=== PATIENT | female | born 1990 ===

== ENCOUNTER 2019-03-14 17:00 | Inpatient (IN) | payer BC ==
[2019-03-14] MEDS ORDERED: Nalbuphine 10 MG/1 ML Vial IVPUSH PRN (17:23)
[2019-03-14] MEDS ORDERED: Sodium Chloride 0.9% 10 ML Syringe FLUSH PRN (17:23)
[2019-03-14] MEDS ORDERED: Lidocaine 1% 50 ML MDV INJECT PRN (17:23)
[2019-03-14] MEDS ORDERED: Methylergonovine 0.2 MG/1 ML Amp IM PRN (17:23)
[2019-03-14] MEDS ORDERED: Ondansetron 4 MG/2 ML SDV IV PRN (17:23)
[2019-03-14] MEDS ORDERED: Misoprostol 200 MCG Tab PO PRN (17:23)
[2019-03-14] MEDS ORDERED: Sodium Chloride 0.9% 10 ML SDV IV PRN (17:23)
[2019-03-14] MEDS ORDERED: Water For Irrigation,Sterile 1,000 ML Container IRR PRN (17:23)
[2019-03-14] MEDS ORDERED: Carboprost Tromethamine 250 MCG/1 ML Amp IM PRN (17:23)
[2019-03-14] MEDS ORDERED: Butorphanol 1 MG/ML SDV IVPUSH PRN (17:23)
[2019-03-14] MEDS ORDERED: Tranexamic Acid 1,000 MG in Sodium Chloride 0.9% 100 ML IV PRN (17:23)
[2019-03-14] MEDS ORDERED: Terbutaline 1 MG/ML SDV SUBCUT PRN (17:23)
[2019-03-14] MEDS ORDERED: Sodium Chloride 0.9% 2.5 ML Syringe FLUSH PRN (17:23)
[2019-03-14] MEDS ORDERED: Oxytocin/0.9 % Sodium Chloride 30 UNIT/500 ML BAG IV SCH ×2 (17:30)
[2019-03-14] MEDS ORDERED: Lactated Ringers 1,000 ML IV SCH (17:30)
[2019-03-14] MEDS ORDERED: Ampicillin 2 GM in Sodium Chloride 0.9% 100 ML IV ONE (18:00)
[2019-03-14] MEDS: Lactated Ringers 1,000 ML IV SCH (18:38)
[2019-03-14] MEDS: Ampicillin 1 GM in Sodium Chloride 0.9% 50 ML IV SCH (23:10)
[2019-03-15] MEDS: Lactated Ringers 1,000 ML IV SCH ×2 (01:05→02:10)
[2019-03-15] MEDS ORDERED: Lidocaine HCl/EPINEPHrine 5 ML IJ ONE (01:12)
[2019-03-15] MEDS ORDERED: fentaNYL 100 MCG/2 ML SDV ONE (01:13)
[2019-03-15] MEDS ORDERED: Ropivacaine 0.2% 2 MG/ML 20 ML SDV ONE (01:13)
[2019-03-15] MEDS ORDERED: Ropivacaine HCl/PF 100 ML ONE (01:13)
--- NOTE | 2019-03-15 02:30 | PCM.PREANE ---
Preanesthetic Assessment - Anesthesia/Transfusion/Family Hx Anesthesia History: Prior Anesthesia Without Reaction Family History of Anesthesia Reaction: No Transfusion History: No Prior Transfusion(s) - Review of Systems General: No Symptoms Pulmonary: No Symptoms Cardiovascular: No Symptoms Gastrointestinal: No Symptoms Neurological: No Symptoms Other: Reports: None (Denies any personal or family hx of bleeding or clotting problems) - Physical Assessment Height: 1.6 m Weight: 96.615 kg ASA Class: 2 Mental Status: Alert & Oriented x3 Dentition: Reports: Normal Dentition - Lab Values: Laboratory Last Values WBC 10.24 K/uL (4.0-11.0) 03/14/19 17:47 RBC 5.57 M/uL (4.30-5.90) 03/14/19 17:47 Hgb 10.0 g/dL (12.0-16.0) L 03/14/19 17:47 Hct 33.2 % (36.0-46.0) L 03/14/19 17:47 MCV 59.6 fL (80.0-98.0) L 03/14/19 17:47 MCH 18.0 pg (27.0-32.0) L 03/14/19 17:47 MCHC 30.1 g/dL (31.0-37.0) L 03/14/19 17:47 RDW Std Deviation 43.5 fl (28.0-62.0) 03/14/19 17:47 RDW Coeff of Anjelica 21 % (11.0-15.0) H 03/14/19 17:47 Plt Count 232 K/uL (150-400) 03/14/19 17:47 Nucleated RBC % 0.3 /100WBC 03/14/19 17:47 Nucleated RBCs # 0 K/uL 03/14/19 17:47 POC Glucose 92 mg/dL (60-110) 03/15/19 02:02 Blood Type O POSITIVE 03/14/19 17:47 Antibody Screen NEGATIVE 03/14/19 17:47 - Allergies Allergies/Adverse Reactions: Allergies Allergy/AdvReac Type Severity Reaction Status Date / Time shellfish derived Allergy Anaphylactic Verified 03/14/19 17:17 Shock - Acknowledgements Anesthesia Type Planned: Epidural Pt an Appropriate Candidate for the Planned Anesthesia: Yes Alternatives and Risks of Anesthesia Discussed w Pt/Guardian: Yes Pt/Guardian Understands and Agrees with Anesthesia Plan: Yes PreAnesthesia Questionnaire [employer] History: Reports: Neurological History: Reports: Migraines Endocrine/Metabolic History: Reports: Diabetes, Gestational, IDDM Hematologic History: Reports: Anemia, Other (See Below) Other Hematologic History: microcytic anemia - Infectious Disease History Infectious Disease History: Reports: Chicken Pox - Past Surgical History Endocrine Surgical History: Reports: None - SUBSTANCE USE Smoking Status *Q: Never Smoker Tobacco Use Within Last Twelve Months: No Second Hand Smoke Exposure: No Recreational Drug Use History: No - HOME MEDS Home Medications: Home Meds Insulin NPH Human Isophane [Novolin N] 14 unit SQ DAILY 03/14/19 [History] Insulin NPH Human Isophane [Novolin N] 20 unit SQ BEDTIME 03/14/19 [History] Insulin Regular, Human [NovoLIN R] 11 unit SUBCUT BEDTIME 03/14/19 [History] Insulin Regular, Human [NovoLIN R] 18 unit SUBCUT DAILY 03/14/19 [History] - CURRENT (IN HOUSE) MEDS Current Meds: Current Medications Butorphanol Tartrate (Stadol) 1 mg IVPUSH Q1H PRN PRN Reason: Pain Carboprost Tromethamine (Hemabate Ds) 250 mcg IM ASDIRECTED PRN PRN Reason: Post Hemorrhage Ampicillin Sodium 1 gm/ Sodium (Chloride) 50 mls @ 100 mls/hr IV Q4H [facility] Last Admin: 03/14/19 23:10 Dose: 100 mls/hr Lactated Ringer's (Ringers, Lactated) 1,000 mls @ 150 mls/hr IV ASDIRECTED [facility] Last Admin: 03/14/19 18:23 Dose: 100 mls/hr Oxytocin/Sodium Chloride (Oxytocin 30 Unit/500 Ml-Ns) 30 unit in 500 mls @ 999 mls/hr IV TITRATE [facility] Oxytocin/Sodium Chloride (Oxytocin 30 Unit/500 Ml-Ns) 30 unit in 500 mls @ 2 mls/hr IV TITRATE [facility]; Protocol Last Titration: 03/14/19 23:08 Dose: 10 munits/min, 10 mls/hr Tranexamic Acid 1,000 mg/ (Sodium Chloride) 110 mls @ 660 mls/hr IV ONETIME PRN PRN Reason: Bleeding Insulin Human Regular 100 unit (/ Sodium Chloride) 100 mls @ 2 mls/hr IV TITRATE [facility]; Protocol Last Titration: 03/14/19 23:44 Dose: 0.5 unit/hr, 0.5 mls/hr Lactated Ringer's (Ringers, Lactated) 1,000 mls @ 150 mls/hr IV ASDIRECTED [facility] Last Admin: 03/15/19 02:10 Dose: 500 mls/hr Lidocaine HCl (Xylocaine 1%) 50 ml INJECT ONETIME PRN PRN Reason: Laceration repair Methylergonovine Maleate (Methergine) 0.2 mg IM ASDIRECTED PRN PRN Reason: Post Hemorrhage Misoprostol (Cytotec) 200 mcg PO ONETIME PRN PRN Reason: Post Hemorrhage Nalbuphine HCl (Nubain) 10 mg IVPUSH Q1H PRN PRN Reason: Pain (severe 7-10) Ondansetron HCl (Zofran) 4 mg IV Q6H PRN PRN Reason: Nausea/Vomiting Sodium Chloride (Saline Flush) 10 ml FLUSH ASDIRECTED PRN PRN Reason: Keep Vein Open Sodium Chloride (Saline Flush) 2.5 ml FLUSH ASDIRECTED PRN PRN Reason: Keep Vein Open Sodium Chloride (Normal Saline) 10 ml IV ASDIRECTED PRN PRN Reason: IV Use Sterile Water (Sterile Water For Irrigation) 1,000 ml IRR ASDIRECTED PRN PRN Reason: delivery Terbutaline Sulfate (Brethine) 0.25 mg SUBCUT ASDIRECTED PRN PRN Reason: Tacysystole Discontinued Medications Fentanyl (Sublimaze) Confirm Administered Dose 300 mcg .ROUTE .STK-MED ONE Stop: 03/15/19 01:14 Ampicillin Sodium 2 gm/ Sodium (Chloride) 100 mls @ 200 mls/hr IV ONETIME ONE Stop: 03/14/19 18:29 Last Admin: 03/14/19 18:38 Dose: 200 mls/hr Ropivacaine (Naropin 0.2%) Confirm Administered Dose 100 mls @ as directed .ROUTE .STK-MED ONE Stop: 03/15/19 01:14 Lidocaine/Epinephrine (Lidocaine 1.5%-Epi 1:200,000) Confirm Administered Dose 5 ml IJ .STK-MED ONE Stop: 03/15/19 01:13 Ropivacaine (Naropin 0.2%) Confirm Administered Dose 20 ml .ROUTE .K-MED ONE Stop: 03/15/19 01:14
[2019-03-15] MEDS: Ampicillin 1 GM in Sodium Chloride 0.9% 50 ML IV SCH ×4 (03:00→17:26)
[2019-03-15] MEDS ORDERED: Lanolin 100% Cream 7 GM Tube TOP PRN (04:49)
[2019-03-15] MEDS ORDERED: Witch Hazel Medicated Pads 40/Jar TOP PRN (04:49)
[2019-03-15] MEDS ORDERED: Docusate Sodium 100 MG Cap PO PRN (04:49)
[2019-03-15] MEDS ORDERED: Acetaminophen 500 MG Tab PO PRN ×2 (04:49)
[2019-03-15] MEDS ORDERED: Ibuprofen 400 MG Tab PO PRN (04:49)
[2019-03-15] MEDS ORDERED: oxyCODONE 5 MG Tab PO PRN (04:49)
[2019-03-15] MEDS ORDERED: Benzocaine/Menthol 20%-0.5% Spray 78 GM Cannister TOP PRN (04:49)
[2019-03-15] MEDS ORDERED: Bisacodyl 10 MG Supp RECTAL PRN (04:49)
--- NOTE | 2019-03-15 04:56 | PCM.DEL ---
L & D Note - General Info Date of Service: 03/15/19 Mother's Due Date: 03/23/19 - Delivery Note Labor: Augmented by Oxytocin Cervical Ripening Method: Oxytocin Delivery Outcome: Livebirth Delivery Method: Spontaneous Vaginal Delivery-Single Presentation: Left Occiput Anterior (YAHIR) Nuchal Cord: None Anesthesia Type: Epidural Amniotic Fluid Description: Clear Episiotomy Type: None Laceration: Other (small abrasion on skin oozing ,1 stitch 3.0 vicryl for hemostasis ) Placenta: Intact Cord: 3 Vessels Score 1 min: 8 Score 5 min: 9 Delivery Comments (Free Text/Narrative):: Live male delivered at 345am , 8/9 , weight 4000g - General Info Date of Service: 03/15/19 - Patient Data Weight - Most Recent: 96.615 kg Lab Results Last 24 Hours: Laboratory Results - last 24 hr 03/14/19 03/14/19 03/14/19 Range/Units 17:47 17:47 18:15 WBC 10.24 (4.0-11.0) K/uL RBC 5.57 (4.30-5.90) M/uL Hgb 10.0 L (12.0-16.0) g/dL Hct 33.2 L (36.0-46.0) % MCV 59.6 L (80.0-98.0) fL MCH 18.0 L (27.0-32.0) pg MCHC 30.1 L (31.0-37.0) g/dL RDW Std Deviation 43.5 (28.0-62.0) fl RDW Coeff of Anjelica 21 H (11.0-15.0) % Plt Count 232 (150-400) K/uL Nucleated RBC % 0.3 /100WBC Nucleated RBCs # 0 K/uL POC Glucose 125 H (60-110) mg/dL Blood Type O POSITIVE Antibody Screen NEGATIVE 03/14/19 03/14/19 03/14/19 Range/Units 20:23 22:09 23:42 WBC (4.0-11.0) K/uL RBC (4.30-5.90) M/uL Hgb (12.0-16.0) g/dL Hct (36.0-46.0) % MCV (80.0-98.0) fL MCH (27.0-32.0) pg MCHC (31.0-37.0) g/dL RDW Std Deviation (28.0-62.0) fl RDW Coeff of Anjelica (11.0-15.0) % Plt Count (150-400) K/uL Nucleated RBC % /100WBC Nucleated RBCs # K/uL POC Glucose 74 106 93 (60-110) mg/dL Blood Type Antibody Screen 03/15/19 Range/Units 02:02 WBC (4.0-11.0) K/uL RBC (4.30-5.90) M/uL Hgb (12.0-16.0) g/dL Hct (36.0-46.0) % MCV (80.0-98.0) fL MCH (27.0-32.0) pg MCHC (31.0-37.0) g/dL RDW Std Deviation (28.0-62.0) fl RDW Coeff of Anjelica (11.0-15.0) % Plt Count (150-400) K/uL Nucleated RBC % /100WBC Nucleated RBCs # K/uL POC Glucose 92 (60-110) mg/dL Blood Type Antibody Screen Med Orders - Current: Current Medications Butorphanol Tartrate (Stadol) 1 mg IVPUSH Q1H PRN PRN Reason: Pain Carboprost Tromethamine (Hemabate Ds) 250 mcg IM ASDIRECTED PRN PRN Reason: Post Hemorrhage Ampicillin Sodium 1 gm/ Sodium (Chloride) 50 mls @ 100 mls/hr IV Q4H [facility] Last Admin: 03/15/19 03:00 Dose: 100 mls/hr Lactated Ringer's (Ringers, Lactated) 1,000 mls @ 150 mls/hr IV ASDIRECTED [facility] Last Admin: 03/14/19 18:23 Dose: 100 mls/hr Oxytocin/Sodium Chloride (Oxytocin 30 Unit/500 Ml-Ns) 30 unit in 500 mls @ 999 mls/hr IV TITRATE [facility] Oxytocin/Sodium Chloride (Oxytocin 30 Unit/500 Ml-Ns) 30 unit in 500 mls @ 2 mls/hr IV TITRATE [facility]; Protocol Last Titration: 03/15/19 02:31 Dose: 6 munits/min, 6 mls/hr Tranexamic Acid 1,000 mg/ (Sodium Chloride) 110 mls @ 660 mls/hr IV ONETIME PRN PRN Reason: Bleeding Insulin Human Regular 100 unit (/ Sodium Chloride) 100 mls @ 2 mls/hr IV TITRATE [facility]; Protocol Last Titration: 03/14/19 23:44 Dose: 0.5 unit/hr, 0.5 mls/hr Lactated Ringer's (Ringers, Lactated) 1,000 mls @ 150 mls/hr IV ASDIRECTED [facility] Last Admin: 03/15/19 02:10 Dose: 500 mls/hr Lidocaine HCl (Xylocaine 1%) 50 ml INJECT ONETIME PRN PRN Reason: Laceration repair Methylergonovine Maleate (Methergine) 0.2 mg IM ASDIRECTED PRN PRN Reason: Post Hemorrhage Misoprostol (Cytotec) 200 mcg PO ONETIME PRN PRN Reason: Post Hemorrhage Nalbuphine HCl (Nubain) 10 mg IVPUSH Q1H PRN PRN Reason: Pain (severe 7-10) Ondansetron HCl (Zofran) 4 mg IV Q6H PRN PRN Reason: Nausea/Vomiting Sodium Chloride (Saline Flush) 10 ml FLUSH ASDIRECTED PRN PRN Reason: Keep Vein Open Sodium Chloride (Saline Flush) 2.5 ml FLUSH ASDIRECTED PRN PRN Reason: Keep Vein Open Sodium Chloride (Normal Saline) 10 ml IV ASDIRECTED PRN PRN Reason: IV Use Sterile Water (Sterile Water For Irrigation) 1,000 ml IRR ASDIRECTED PRN PRN Reason: delivery Terbutaline Sulfate (Brethine) 0.25 mg SUBCUT ASDIRECTED PRN PRN Reason: Tacysystole Discontinued Medications Fentanyl (Sublimaze) Confirm Administered Dose 300 mcg .ROUTE .STK-MED ONE Stop: 03/15/19 01:14 Ampicillin Sodium 2 gm/ Sodium (Chloride) 100 mls @ 200 mls/hr IV ONETIME ONE Stop: 03/14/19 18:29 Last Admin: 03/14/19 18:38 Dose: 200 mls/hr Ropivacaine (Naropin 0.2%) Confirm Administered Dose 100 mls @ as directed .ROUTE .STK-MED ONE Stop: 03/15/19 01:14 Lidocaine/Epinephrine (Lidocaine 1.5%-Epi 1:200,000) Confirm Administered Dose 5 ml IJ .STK-MED ONE Stop: 03/15/19 01:13 Ropivacaine (Naropin 0.2%) Confirm Administered Dose 20 ml .ROUTE .STK-MED ONE Stop: 03/15/19 01:14 - Problem List & Annotations (1) Vaginal delivery SNOMED Code(s): 582727141 Code(s): O80 - ENCOUNTER FOR FULL-TERM UNCOMPLICATED DELIVERY Status: Acute Current Visit: Yes - Problem List Review Problem List Initiated/Reviewed/Updated: Yes - My Orders Last 24 Hours: My Active Orders 03/15/19 04:49 Patient Status [ADT] Routine May Shower [RC] ASDIRECTED Up ad Zo [RC] ASDIRECTED Vital Signs [RC] PER UNIT ROUTINE Acetaminophen [Tylenol Extra Strength] 1,000 mg PO Q4H PRN Acetaminophen [Tylenol Extra Strength] 500 mg PO Q4H PRN Benzocaine/Menthol [Dermoplast Pain Relief 20%-0.5% [place]] 78 gm TOP ASDIRECTED PRN Bisacodyl [Dulcolax] 10 mg RECTAL ONETIME PRN Docusate Sodium [Colace] 100 mg PO BID PRN Ibuprofen [Motrin] 400 mg PO Q4H PRN Ibuprofen [Motrin] 800 mg PO Q6H PRN Lanolin [Lansinoh HPA] See Dose Instructions TOP ASDIRECTED PRN Witch Betty [Tucks] 1 pad TOP ASDIRECTED PRN oxyCODONE 5 mg PO Q2H PRN Assess Lochia [WOMSER] Per Unit Routine Assess Uterine Involution [WOMSER] Per Unit Routine Peripheral IV Discontinue [OM.PC] Routine Resuscitation Status Routine 03/16/19 05:11 HEMOGLOBIN/HEMATOCRIT,HH [HEME] Timed
[2019-03-15] MEDS: Ibuprofen 800 MG Tab PO PRN ×3 (08:12→23:05)
--- NOTE | 2019-03-15 08:54 | PCM48HPAN ---
Post Anesthesia Note - EVALUATION WITHIN 48HRS OF ANESTHETIC Vital Signs in Normal Range: Yes Patient Participated in Evaluation: Yes Respiratory Function Stable: Yes Airway Patent: Yes Cardiovascular Function Stable: Yes Hydration Status Stable: Yes Pain Control Satisfactory: Yes Nausea and Vomiting Control Satisfactory: Yes Mental Status Recovered: Yes - COMMENTS/OBSERVATIONS Free Text/Narrative:: Denies any complaints. Up walking in room by baby.
--- NOTE | 2019-03-15 20:17 | OR ---
SURGEON: ELI BLANCO DATE OF PROCEDURE: 03/15/2019 PREOPERATIVE DIAGNOSIS: 28-year-old G5, P4, at 38w5d GDMA2 on insulin POSTOPERATIVE DIAGNOSIS: 28-year-old G5, P4, at 38w5d GDMA2 on insulin PROCEDURE: Normal spontaneous vaginal delivery. ESTIMATED BLOOD LOSS: 300. NOTABLE FINDING: A live male delivered at 3:45 a.m. score was 8 and 9. Weight is 4000 g. BRIEF HISTORY: She is a 28-year-old G5, P4-0-0-4 at 38 weeks 4 days, who had gestational diabetes. She was having elevated fingersticks, especially fasting, so she was counseled for induction of labor. When she came in, she was 1 cm. Induction was started with Pitocin. The patient had normal labor course, became fully dilated, and she was encouraged to push. PROCEDURE:. With the patient being fully dilated, she was encouraged to push. She delivered the head, followed subsequently by the anterior and posterior shoulder, the body of the was delivered. The cord was clamped and cut. The was handed over to the awaiting nursery nurse. The placenta was delivered via controlled cord traction. Cord blood gases were obtained. Pitocin was started. The perineum was noted to be intact. All instrument and pad counts were correct x2. NOEL / ZACHARY /[id number] MTDD
[2019-03-16] MEDS: Ampicillin 1 GM in Sodium Chloride 0.9% 50 ML IV SCH ×4 (07:23→18:51)
--- NOTE | 2019-03-16 10:41 | PCM.PNPP ---
- General Info Date of Service: 03/16/19 Subjective Update: 28yo P5 s/p PPD1 , stable , ambulating, and tolerating regular diet Functional Status: Reports: Pain Controlled, Tolerating Diet, Ambulating, Urinating - Review of Systems General: Reports: No Symptoms HEENT: Reports: No Symptoms Pulmonary: Reports: No Symptoms Cardiovascular: Reports: No Symptoms Gastrointestinal: Reports: No Symptoms Genitourinary: Reports: No Symptoms Musculoskeletal: Reports: No Symptoms Skin: Reports: No Symptoms Neurological: Reports: No Symptoms Psychiatric: Reports: No Symptoms - General Info Date of Service: 03/16/19 - Patient Data Vital Signs - Most Recent: Last Vital Signs Temp 36.8 C 03/16/19 07:39 Pulse 87 03/16/19 07:39 Resp 17 03/16/19 07:39 BP 112/65 03/16/19 07:39 Pulse Ox 96 03/16/19 07:39 Weight - Most Recent: 96.615 kg Lab Results - Last 24 Hours: Laboratory Results - last 24 hr 03/15/19 03/15/19 03/16/19 Range/Units 03:45 22:59 05:52 Hgb 8.9 L (12.0-16.0) g/dL Hct 30.4 L (36.0-46.0) % Cord ABG pH 7.219 (7.18-7.38) Cord ABG Base Excess -6 (-10--2) Cord VBG pH 7.252 (7.25-7.45) Cord VBG Base Excess -6 (-10--2) POC Glucose 113 H (60-110) mg/dL Fasting Glucose (74-106) mg/dL 03/16/19 Range/Units 05:52 Hgb (12.0-16.0) g/dL Hct (36.0-46.0) % Cord ABG pH (7.18-7.38) Cord ABG Base Excess (-10--2) Cord VBG pH (7.25-7.45) Cord VBG Base Excess (-10--2) POC Glucose (60-110) mg/dL Fasting Glucose 110 H (74-106) mg/dL Med Orders - Current: Current Medications Acetaminophen (Tylenol Extra Strength) 500 mg PO Q4H PRN PRN Reason: Pain Acetaminophen (Tylenol Extra Strength) 1,000 mg PO Q4H PRN PRN Reason: Pain Benzocaine/Menthol (Dermoplast Pain Relief 20%-0.5% [place]) 78 gm TOP ASDIRECTED PRN PRN Reason: Perineal Comfort Measure Bisacodyl (Dulcolax) 10 mg RECTAL ONETIME PRN PRN Reason: Constipation Butorphanol Tartrate (Stadol) 1 mg IVPUSH Q1H PRN PRN Reason: Pain Carboprost Tromethamine (Hemabate Ds) 250 mcg IM ASDIRECTED PRN PRN Reason: Post Hemorrhage Docusate Sodium (Colace) 100 mg PO BID PRN PRN Reason: Constipation Last Admin: 03/15/19 21:04 Dose: 100 mg Emollient Ointment (Lansinoh Hpa) 0 gm TOP ASDIRECTED PRN PRN Reason: Sore Nipples Ampicillin Sodium 1 gm/ Sodium (Chloride) 50 mls @ 100 mls/hr IV Q4H [facility] Last Admin: 03/16/19 07:24 Dose: Not Given Lactated Ringer's (Ringers, Lactated) 1,000 mls @ 150 mls/hr IV ASDIRECTED [facility] Last Admin: 03/14/19 18:23 Dose: 100 mls/hr Oxytocin/Sodium Chloride (Oxytocin 30 Unit/500 Ml-Ns) 30 unit in 500 mls @ 999 mls/hr IV TITRATE [facility] Oxytocin/Sodium Chloride (Oxytocin 30 Unit/500 Ml-Ns) 30 unit in 500 mls @ 2 mls/hr IV TITRATE [facility]; Protocol Last Titration: 03/15/19 03:49 Dose: 500 munits/min, 500 mls/hr Tranexamic Acid 1,000 mg/ (Sodium Chloride) 110 mls @ 660 mls/hr IV ONETIME PRN PRN Reason: Bleeding Insulin Human Regular 100 unit (/ Sodium Chloride) 100 mls @ 2 mls/hr IV TITRATE [facility]; Protocol Last Titration: 03/15/19 03:50 Dose: 0 unit/hr, 0 mls/hr Lactated Ringer's (Ringers, Lactated) 1,000 mls @ 150 mls/hr IV ASDIRECTED [facility] Last Admin: 03/15/19 02:10 Dose: 500 mls/hr Ibuprofen (Motrin) 400 mg PO Q4H PRN PRN Reason: Pain Ibuprofen (Motrin) 800 mg PO Q6H PRN PRN Reason: Pain Last Admin: 03/15/19 23:05 Dose: 800 mg Lidocaine HCl (Xylocaine 1%) 50 ml INJECT ONETIME PRN PRN Reason: Laceration repair Methylergonovine Maleate (Methergine) 0.2 mg IM ASDIRECTED PRN PRN Reason: Post Hemorrhage Misoprostol (Cytotec) 200 mcg PO ONETIME PRN PRN Reason: Post Hemorrhage Nalbuphine HCl (Nubain) 10 mg IVPUSH Q1H PRN PRN Reason: Pain (severe 7-10) Ondansetron HCl (Zofran) 4 mg IV Q6H PRN PRN Reason: Nausea/Vomiting Oxycodone HCl (Oxycodone) 5 mg PO Q2H PRN PRN Reason: Pain Sodium Chloride (Saline Flush) 10 ml FLUSH ASDIRECTED PRN PRN Reason: Keep Vein Open Sodium Chloride (Saline Flush) 2.5 ml FLUSH ASDIRECTED PRN PRN Reason: Keep Vein Open Sodium Chloride (Normal Saline) 10 ml IV ASDIRECTED PRN PRN Reason: IV Use Sterile Water (Sterile Water For Irrigation) 1,000 ml IRR ASDIRECTED PRN PRN Reason: delivery Terbutaline Sulfate (Brethine) 0.25 mg SUBCUT ASDIRECTED PRN PRN Reason: Tacysystole Witch Betty (Tucks) 1 pad TOP ASDIRECTED PRN PRN Reason: comfort care Discontinued Medications Fentanyl (Sublimaze) Confirm Administered Dose 300 mcg .ROUTE .STK-MED ONE Stop: 03/15/19 01:14 Last Admin: 03/15/19 08:21 Dose: Not Given Ampicillin Sodium 2 gm/ Sodium (Chloride) 100 mls @ 200 mls/hr IV ONETIME ONE Stop: 03/14/19 18:29 Last Admin: 03/14/19 18:38 Dose: 200 mls/hr Ropivacaine (Naropin 0.2%) Confirm Administered Dose 100 mls @ as directed .ROUTE .STK-MED ONE Stop: 03/15/19 01:14 Last Admin: 03/15/19 08:21 Dose: Not Given Lidocaine/Epinephrine (Lidocaine 1.5%-Epi 1:200,000) Confirm Administered Dose 5 ml IJ .STK-MED ONE Stop: 03/15/19 01:13 Last Admin: 03/15/19 08:21 Dose: Not Given Ropivacaine (Naropin 0.2%) Confirm Administered Dose 20 ml .ROUTE .STK-MED ONE Stop: 03/15/19 01:14 Last Admin: 03/15/19 08:21 Dose: Not Given - Infant Interaction Support Person: Significant Other - Recovery Exam Fundal Tone: Firm Fundal Level: 1 Fingerbreadths Below Umbilicus Fundal Placement: Midline Lochia Amount: Small Lochia Color: Rubra/Red Perineum Description: Edematous Episiotomy/Laceration: Approximated Bladder Status: Voiding Urinary Elimination: Voided - Exam General: Alert HEENT: Pupils Equal Neck: Supple Lungs: Clear to Auscultation Cardiovascular: Regular Rate, Regular Rhythm GI/Abdominal Exam: Normal Bowel Sounds Extremities: Normal Inspection Neurological: No New Focal Deficit - Problem List & Annotations (1) Vaginal delivery SNOMED Code(s): 275414659 Code(s): O80 - ENCOUNTER FOR FULL-TERM UNCOMPLICATED DELIVERY Status: Acute Current Visit: Yes - Problem List Review Problem List Initiated/Reviewed/Updated: Yes - Assessment Assessment:: 28yo P5 s/p PPD 1, slightly elevated fasting otherwise normal Pain controlled , Normal lochia - Plan Plan:: Discharge home today Will Do OGTT in 6 weeks to check if still diabetic
[2019-03-16] MEDS: Ibuprofen 800 MG Tab PO PRN (16:56)
--- NOTE | 2019-03-17 07:55 | PCM.PNPP ---
- General Info Date of Service: 03/17/19 Functional Status: Reports: Pain Controlled, Tolerating Diet, Ambulating, Urinating, Other (baby requiring bili lights for now) - Review of Systems General: Reports: No Symptoms HEENT: Reports: No Symptoms Pulmonary: Reports: No Symptoms Cardiovascular: Reports: No Symptoms Gastrointestinal: Reports: No Symptoms Genitourinary: Reports: No Symptoms Musculoskeletal: Reports: No Symptoms Skin: Reports: No Symptoms Neurological: Reports: No Symptoms Psychiatric: Reports: No Symptoms - Patient Data Vital Signs - Most Recent: Last Vital Signs Temp 36.9 C 03/17/19 04:00 Pulse 93 03/17/19 04:00 Resp 17 03/17/19 04:00 BP 117/66 03/17/19 04:00 Pulse Ox 95 03/17/19 04:00 Weight - Most Recent: 96.615 kg Med Orders - Current: Current Medications Acetaminophen (Tylenol Extra Strength) 500 mg PO Q4H PRN PRN Reason: Pain Acetaminophen (Tylenol Extra Strength) 1,000 mg PO Q4H PRN PRN Reason: Pain Benzocaine/Menthol (Dermoplast Pain Relief 20%-0.5% [place]) 78 gm TOP ASDIRECTED PRN PRN Reason: Perineal Comfort Measure Bisacodyl (Dulcolax) 10 mg RECTAL ONETIME PRN PRN Reason: Constipation Butorphanol Tartrate (Stadol) 1 mg IVPUSH Q1H PRN PRN Reason: Pain Carboprost Tromethamine (Hemabate Ds) 250 mcg IM ASDIRECTED PRN PRN Reason: Post Hemorrhage Docusate Sodium (Colace) 100 mg PO BID PRN PRN Reason: Constipation Last Admin: 03/15/19 21:04 Dose: 100 mg Emollient Ointment (Lansinoh Hpa) 0 gm TOP ASDIRECTED PRN PRN Reason: Sore Nipples Ampicillin Sodium 1 gm/ Sodium (Chloride) 50 mls @ 100 mls/hr IV Q4H [facility] Last Admin: 03/16/19 18:51 Dose: Not Given Lactated Ringer's (Ringers, Lactated) 1,000 mls @ 150 mls/hr IV ASDIRECTED [facility] Last Admin: 03/14/19 18:23 Dose: 100 mls/hr Oxytocin/Sodium Chloride (Oxytocin 30 Unit/500 Ml-Ns) 30 unit in 500 mls @ 999 mls/hr IV TITRATE KIMBERLY Oxytocin/Sodium Chloride (Oxytocin 30 Unit/500 Ml-Ns) 30 unit in 500 mls @ 2 mls/hr IV TITRATE KIMBERLY; Protocol Last Titration: 03/15/19 03:49 Dose: 500 munits/min, 500 mls/hr Tranexamic Acid 1,000 mg/ (Sodium Chloride) 110 mls @ 660 mls/hr IV ONETIME PRN PRN Reason: Bleeding Insulin Human Regular 100 unit (/ Sodium Chloride) 100 mls @ 2 mls/hr IV TITRATE KIMBERLY; Protocol Last Titration: 03/15/19 03:50 Dose: 0 unit/hr, 0 mls/hr Lactated Ringer's (Ringers, Lactated) 1,000 mls @ 150 mls/hr IV ASDIRECTED KIMBERLY Last Admin: 03/15/19 02:10 Dose: 500 mls/hr Ibuprofen (Motrin) 400 mg PO Q4H PRN PRN Reason: Pain Ibuprofen (Motrin) 800 mg PO Q6H PRN PRN Reason: Pain Last Admin: 03/16/19 16:56 Dose: 800 mg Lidocaine HCl (Xylocaine 1%) 50 ml INJECT ONETIME PRN PRN Reason: Laceration repair Methylergonovine Maleate (Methergine) 0.2 mg IM ASDIRECTED PRN PRN Reason: Post Hemorrhage Misoprostol (Cytotec) 200 mcg PO ONETIME PRN PRN Reason: Post Hemorrhage Nalbuphine HCl (Nubain) 10 mg IVPUSH Q1H PRN PRN Reason: Pain (severe 7-10) Ondansetron HCl (Zofran) 4 mg IV Q6H PRN PRN Reason: Nausea/Vomiting Oxycodone HCl (Oxycodone) 5 mg PO Q2H PRN PRN Reason: Pain Sodium Chloride (Saline Flush) 10 ml FLUSH ASDIRECTED PRN PRN Reason: Keep Vein Open Sodium Chloride (Saline Flush) 2.5 ml FLUSH ASDIRECTED PRN PRN Reason: Keep Vein Open Sodium Chloride (Normal Saline) 10 ml IV ASDIRECTED PRN PRN Reason: IV Use Sterile Water (Sterile Water For Irrigation) 1,000 ml IRR ASDIRECTED PRN PRN Reason: delivery Terbutaline Sulfate (Brethine) 0.25 mg SUBCUT ASDIRECTED PRN PRN Reason: Tacysystole Celestine Hernández (Tucks) 1 pad TOP ASDIRECTED PRN PRN Reason: comfort care Discontinued Medications Fentanyl (Sublimaze) Confirm Administered Dose 300 mcg .ROUTE .STK-MED ONE Stop: 03/15/19 01:14 Last Admin: 03/15/19 08:21 Dose: Not Given Ampicillin Sodium 2 gm/ Sodium (Chloride) 100 mls @ 200 mls/hr IV ONETIME ONE Stop: 03/14/19 18:29 Last Admin: 03/14/19 18:38 Dose: 200 mls/hr Ropivacaine (Naropin 0.2%) Confirm Administered Dose 100 mls @ as directed .ROUTE .STK-MED ONE Stop: 03/15/19 01:14 Last Admin: 03/15/19 08:21 Dose: Not Given Lidocaine/Epinephrine (Lidocaine 1.5%-Epi 1:200,000) Confirm Administered Dose 5 ml IJ .STK-MED ONE Stop: 03/15/19 01:13 Last Admin: 03/15/19 08:21 Dose: Not Given Ropivacaine (Naropin 0.2%) Confirm Administered Dose 20 ml .ROUTE .STK-MED ONE Stop: 03/15/19 01:14 Last Admin: 03/15/19 08:21 Dose: Not Given - Infant Interaction Disposition, : in Room with Family Feeding: Breastfed Infant; Nursed Well Support Person: Significant Other - Recovery Exam Fundal Tone: Firm Fundal Level: 1 Fingerbreadths Below Umbilicus Fundal Placement: Midline Lochia Amount: Scant Lochia Color: Rubra/Red Perineum Description: Other (see below) Other Perinuem Description: 1st deg laceration Episiotomy/Laceration: Approximated Bladder Status: Nonpalpable, Voiding Urinary Elimination: Voided - Exam General: Alert, Oriented HEENT: Pupils Equal Neck: Supple Lungs: Normal Respiratory Effort Extremities: Non-Tender, No Pedal Edema Skin: Warm, Dry, Intact Neurological: No New Focal Deficit Psy/Mental Status: Alert, Normal Affect, Normal Mood - Problem List & Annotations (1) Vaginal delivery SNOMED Code(s): 596420479 Code(s): O80 - ENCOUNTER FOR FULL-TERM UNCOMPLICATED DELIVERY Status: Acute Current Visit: Yes - Problem List Review Problem List Initiated/Reviewed/Updated: Yes - Assessment Assessment:: PPD#2 after , stable minimal lochia, tolerating diet. Fasting glucose readings are still mildly elevated. Baby has elevated bilirubin and is receiving phototherapy. - Plan Plan:: Discharge home today I have asked her to continue to check glucose readings during the period due to elevated glucose readings during hospitalization. Discharge instructions reviewed, continue iron for 1 month due to anemia.
== END 2019-03-17 18:20 | disposition home or self-care (01) | DRG 560 ==
LOC: MW.OB 17:00 → MERGE 03-15 03:45 → OBSVTOIN 03-15 03:45 → MW.OB 03-15 10:55 → MW.MS 03-16 22:49 → MW.OB 03-16 23:35
PROVIDERS: ADMIT Obstetrics & Gynecology; ATTEND Obstetrics & Gynecology
PROC: 10E0XZZ Delivery of Products of Conception, External Approach (ICD-10-PCS; principal; 2019-03-15)
PROC: 3E033VJ Introduction of Other Hormone into Peripheral Vein, Percutaneous Approach (ICD-10-PCS; 2019-03-15)
DX: O24.424 Gestational diabetes mellitus in childbirth, insulin controlled (principal); O40.3XX0 Polyhydramnios, third trimester, not applicable or unspecified; O99.824 Streptococcus B carrier state complicating childbirth; D56.3 Thalassemia minor; O75.89 Other specified complications of labor and delivery; Z3A.38 38 weeks gestation of pregnancy; Z37.0 Single live birth
CPT/HCPCS: 36415; 51702; 59025; 59409; 82803; 82947; 82962; 85014; 85018; 85027; 86850; 86900; 86901; A9270-GY; J0290; J2590; J2795; J3010; J7030; J7050; J7120